=== PATIENT | male | born 1960 | race Caucasian/White ===

== ENCOUNTER 2019-06-13 17:38 | Inpatient (IN) ==
--- NOTE | 2019-06-13 19:56 | Emergency Department Note ---
Disposition Clinical Impression: Finger osteomyelitis, left Disposition: Admitted As Inpatient Condition: Good Time of Disposition: 20:55 General Adult HPI - General Chief complaint: ED Extremity Injury, Upper Stated complaint: Left pointer finger infection,needs iv antibotics Time Seen by Provider: 06/13/19 19:28 Source: patient Limitations: no limitations Nursing Notes Reviewed: Yes Vital Signs Reviewed: Yes - History of Present Illness HPI Narrative: 59-year-old male otherwise healthy right hand dominant presents to the emergency department with complaints of left finger pain. Approximately a month ago while sledgehammering a stonewall he scraped it against the metal piece. Since then has gradually gotten bigger in size and swollen. Approximately 2 weeks ago his family physician attempted to drain it as there was some drainage but to no avail. He denies any recent fevers nausea or vomiting. Unknown last tetanus. Presents today after being evaluated by his primary care provider in obtaining an x-ray with concern for septic arthritis. He presents here for further evaluation as they can I get him into orthopedic surgeon. He has some discomfort with bending his finger. Unfortunately today he also cut it on something. Pain Scale: 0 - Related Data Allergies Allergy/AdvReac Type Severity Reaction Status Date / Time No Known Allergies Allergy Verified 04/29/19 08:14 All systems ED: reviewed and negative except as stated. Review of Systems: As Per HPI Constitutional: Denies: fever, chills Cardiovascular: Denies: chest pain Respiratory: Denies: dyspnea Gastrointestinal: Denies: nausea, vomiting Musculoskeletal: Reports: as per HPI Integumentary: Reports: as per HPI Past Medical History - Past Medical History Attestation: Yes The following information was validated with the patient. Source: patient Medical history: Reports: non-contributory Surgical history: Reports: herniorrhaphy Psychiatric history: Reports: no psych history - Social History Smoking Status: Never smoker Smokeless Tobacco Status: Yes Alcohol use: Reports: rarely Drug use: Reports: none Physical Exam - General Limitations: no limitations General appearance: alert, in no apparent distress - Head Head exam: atraumatic, normocephalic, normal inspection - Eye Eye exam: Present: normal appearance, EOMI - ENT ENT exam: normal exam, normal oropharynx, mucous membranes moist - Neck Neck exam: Present: normal inspection, full ROM, trachea midline - Chest Chest inspection: Present: normal inspection, symmetric chest wall rise - Respiratory Respiratory exam: Present: normal lung sounds bilaterally. Absent: respiratory distress, wheezes - Cardiovascular Cardiovascular exam: Present: regular rate, normal rhythm, normal heart sounds - Expanded Cardiovascular Exam Peripheral pulses: 2+: radial (R), radial (L) - Expanded Upper Extremity Exam Shoulder exam: Present: normal inspection, full ROM Arm exam: Present: normal inspection, full ROM Elbow exam: Present: normal inspection, full ROM Forearm/Wrist exam: Present: normal inspection, full ROM Hand exam: Present: full ROM (Limited due to discomfort to the left index finger), swelling (Left index along PIP), abrasion (Dorsal side of his PIP). Absent: deformity Hand L/R back image: 1 - Swollen, no drainage, there is a superficial abrasion seen, and blanches but is not warm to the touch slightly erythematous. Neuromotor exam: Normal: wrist extension, thumb opposition, thumb IP flexion, thumb adduction, fingers 2-5 abduction Neurosensory exam: Normal: radial nerve, ulnar nerve, median nerve Vascular exam: Normal: capillary refill, radial pulse - Skin Skin exam: Present: warm, dry, intact, erythema. Absent: rash - Expanded Skin Exam Type of lesion: Absent: rash, abscess Distribution: LUE Description: Present: erythematous, swelling. Absent: confluent, fluctuant Course Course Narrative: On physical exam his left 2nd finger has swelling noted to the PIP joint. Finger is not held in any particular position he has good range of motion and slight discomfort with extension. There is no extension into the hand concerning for tenosynovitis. He has good capillary refill. Sensation is intact. Cardinal him movements intact. I reviewed his labs from earlier today. His WBC is 6. ESR 6. CRP less than 5. I reviewed his x-ray which showed concerns for septic arthropathy. These labs are from earlier today at 0 800. I discussed this with the on-call orthopedic surgeon Dr. Britton who agrees with the suspicion and will consult the patient on the floor for possible OR and incision and drainage tomorrow morning. NPO at midnight. Vancomycin and Zosyn will be ordered as well as blood cultures. Will get the patient's of medicine service. Impression is left finger osteomyelitis. XR/XR hand 3V LT IMPRESSION: Findings consistent with a septic arthropathy of the proximal interphalangeal joint of the 2nd digit. The findings were sent to the Radiology Results Communication [facility] at 9:10 am on 06/13/2019to be communicated to a licensed caregiver. D/ / 06/13/2019 09:16:56 Cory Delgado MD / Letty Millan Interpreting Provider: Cory Delgado MD - Consultations Consultation #1: Spoke with on-call hospitalist dwayne Bradshaw to admit for left finger osteomyelitis. No further orders at this time Time: 20:53 Vital Signs Temperature 98.7 F 06/13/19 18:13 Pulse Rate 78 06/13/19 18:13 Respiratory Rate 18 06/13/19 18:13 Blood Pressure 118/70 06/13/19 18:13 O2 Sat by Pulse Oximetry 96 06/13/19 18:13 Temperature 98.7 F 06/13/19 18:13 Pulse Rate 78 06/13/19 18:13 Respiratory Rate 18 06/13/19 18:13 Blood Pressure 118/70 06/13/19 18:13 O2 Sat by Pulse Oximetry 96 06/13/19 18:13 Oxygen Delivery Oxygen Delivery Room Air Medical Decision Making - MDM Narrative Medical decision making narrative: Patient was discussed with my attending physician who agrees with ED management and final disposition. They independently evaluated the patient. Please refer to their attestation to this encounter for additional information. This note was generated by [employer] voice recognition software and as a result grammatical or spelling errors may occur using this program. - Medical Records Medical records reviewed: Yes I reviewed the patient's medical records. - Lab Data Lab results reviewed: Yes I reviewed the patient's lab results. Lab results narrative: Laboratory Tests 06/13/19 06/13/19 06/13/19 08:36 08:36 08:36 WBC ESR 6 Creatinine 1.01 C-Reactive Protein < 5 Rheumatoid Factor 10 06/13/19 08:36 WBC 6.5 ESR Creatinine C-Reactive Protein Rheumatoid Factor
[2019-06-13] MEDS ORDERED: Piperacillin/Tazobactam 3.375 GM in D5% in Water (Mini-Bag+) 100 ML IVPB ONE (20:01)
--- NOTE | 2019-06-13 20:04 | Emergency Department Note ---
Disposition Clinical Impression: Finger osteomyelitis, left Disposition: Admitted As Inpatient Condition: Fair Referrals: Heri Hernandez DO [Primary Care Provider] - Time of Disposition: 20:55 General Adult HPI - General Chief complaint: ED Extremity Injury, Upper Stated complaint: Left pointer finger infection,needs iv antibotics Time Seen by Provider: 06/13/19 19:28 Source: patient Limitations: no limitations Nursing Notes Reviewed: Yes Vital Signs Reviewed: Yes - History of Present Illness Pain Scale: 0 - Related Data Home Medications Medication Instructions Recorded Confirmed Unable To Obtain [Unable to Obtain] 06/13/19 06/13/19 Allergies Allergy/AdvReac Type Severity Reaction Status Date / Time No Known Allergies Allergy Verified 04/29/19 08:14 Past Medical History - Past Medical History Medical history: Reports: non-contributory Surgical history: Reports: herniorrhaphy Psychiatric history: Reports: no psych history - Social History Smoking Status: Never smoker Smokeless Tobacco Status: Yes Alcohol use: Reports: rarely Drug use: Reports: none Physical Exam - General Limitations: no limitations General appearance: alert, in no apparent distress Course Vital Signs Temperature 98.7 F 06/13/19 18:13 Pulse Rate 78 06/13/19 18:13 Respiratory Rate 18 06/13/19 18:13 Blood Pressure 118/70 06/13/19 18:13 O2 Sat by Pulse Oximetry 96 06/13/19 18:13 Temperature 98.7 F 06/13/19 18:13 Pulse Rate 78 06/13/19 18:13 Respiratory Rate 18 06/13/19 18:13 Blood Pressure 118/70 06/13/19 18:13 O2 Sat by Pulse Oximetry 96 06/13/19 18:13 Oxygen Delivery Oxygen Delivery Room Air Attestation Statement - Attestation Attestation: I examined this patient and my medical decision-making was reviewed with the Resident Physician. I agree with the documented findings, disposition and treatment plan as described except to the extent set forth below. Patient presents to the ED with left index finger swelling. Patient had an injury about a month ago where he scratched his finger at work. It got infected. It continues to be swollen and painful at the PIP joint. He saw his family physician. That an outpatient x-ray that was concerning for septic arthropathy. On examination he is awake and pleasant sitting on the edge of the bed. He is not of swelling and erythema over the PIP joint of the left index finger. Decreased range of motion secondary to the pain. Plan. Labs and x-ray were reviewed. We did discuss the patient with orthopedics on-call. Patient is admitted to medicine with orthopedic consult.
[2019-06-13] MEDS ORDERED: Piperacillin/Tazobactam 3.375 GM in 0.9 % Sodium Chloride Mini Bag 100 ML IVPB ONE (20:15)
[2019-06-13] MEDS ORDERED: Tdap (Boostrix) Vaccine 0.5 ML SYRINGE IM ONE (20:57)
[2019-06-14] MEDS ORDERED: Naloxone 0.4 MG/ML INJ IVP PRN ×2 (05:01→19:31)
--- NOTE | 2019-06-14 05:05 | Internal Med History&Physical ---
Date of Encounter: 06/14/19 Time of Encounter: 04:20 Internal Medicine - H&P: HPI Chief complaint: Septic arthropathy Admitted From: Emergency Dept Plans for Post Hospital Care: Home History of present illness: Mr. Seaman is a 59 year old male Patient presented to the ER with swelling of his left second finger. Approximately 1.5 months ago the patient was using a sledge hammer when he scraped his finger on a metal wall. He initially had a wound, but did not seek medical attention at the time. Over the course of the last few weeks however he has seen multiple providers and has been placed on antibiotics for presumed infection. The joint has been opened up once, and joint aspiration has been attempted with no significant change. He had an x-ray performed by his PCP, the results of which indicated possible septic arthritis. He was advised to come to the ER for further evaluation. In the ER patient's initial vital signs: Within normal limits. CBC: Unremarkable BMP: Within normal limits Liver function tests: Slightly elevated bilirubin of 1.3, other cueva no abnormalities. Left hand x-ray: Findings consistent with a septic arthropathy of the proximal interphalangeal joint of the 2nd digit. Patient was started on vancomycin and zosyn in the ER, and Dr. Britton of orthopedic surgery was consulted and will see the patient in the morning. Upon my evaluation the patient is resting comfortably in the hospital bed in no acute distress. He denies chest pain, abdominal pain, nausea, vomiting, diarrhea, constipation and finger pain. He is able to move the finger with out difficulty. He denies significant family medical history. He states that he has a history of hyperlipidemia and has used a CPAP machine before in the past but not recently. He is a full code. Past Med Surg Social Fam HX - Past Medical History Medical history: non-contributory Additional medical history: sleep apnea Psychiatric history: no psych history - Past Surgical History Surgical History: herniorrhaphy - Social History Smoking Status: Never smoker Smokeless Tobacco Status: Yes Alcohol use: rarely Drug use: none Internal Medicine - H&P: Meds Meloxicam [Mobic] 15 mg PO DAILY 06/13/19 [History] Allergy/AdvReac Type Severity Reaction Status Date / Time No Known Allergies Allergy Verified 04/29/19 08:14 All Systems PM: A 10-system review of systems was performed and is negative for pertinent findings except as documented above in the HPI. - Constitutional Vitals: Temp Pulse Resp BP Pulse Ox 97.8 F 79 18 142/88 97 06/14/19 04:37 06/14/19 04:37 06/14/19 04:37 06/14/19 04:37 06/14/19 04:37 General appearance: Present: cooperative, A&O X 3, pleasant, no acute distress, answers questions appropriately Exam: - - Head Head exam: Present: normal inspection - Eye Eye exam: Present: EOMI, normal appearance - Respiratory Respiratory exam: Present: CTAB. Absent: rales, respiratory distress, rhonchi, wheezes - Cardiovascular Cardiovascular exam: Present: RRR. Absent: diastolic murmur, systolic murmur - GI/Abdominal GI/Abdominal exam: Present: normal bowel sounds, soft. Absent: tenderness - Extremities Exam Extremities exam: Present: warm, radial pulses palpable and symmetrical. Absent: calf tenderness, pedal edema, tenderness Additional comments: Left second digit proximal interphalangeal joint swelling. No tenderness with movement or palpation, not significant erythema - Neurological Exam Neurological exam: Present: no focal deficits, strengths equal and symetr throughout. Absent: motor sensory deficit, facial droop, speech deficit - Skin Skin exam: Present: dry, normal color, warm - Assessment and Plan (1) Septic arthritis Current Visit: Yes Status: Acute Assessment and plan: As seen on patient's hand x-ray. Dr. Britton of orthopedic surgery will consult on the patient in the morning. NPO Pain management as needed Follow up orthopedic surgery recommendations. Continue IV antibiotics. Follow up Blood cultures when available. Qualifiers: Septic arthritis location: hand Septic arthritis organism: due to unspecified organism Laterality: left Qualified Code(s): M00.9 - Pyogenic arthritis, unspecified (2) DVT prophylaxis Current Visit: Yes Status: Acute Assessment and plan: SCDs - Time Spent With Patient Total time spent is greater than 50% in coordination of care (as documented) at patient's floor/unit and/or counseling patient: Greater than 35 minutes
[2019-06-14] MEDS ORDERED: 0.9 % Sodium Chloride 1,000 ML IVC SCH ×2 (05:15→19:31)
[2019-06-14 06:04] LABS: Hematocrit 42.4 % (37.5-50.1); Mean Corpuscular HGB Conc 31.8 g/dL (31.6-35.5); Mean Corpuscular Hemoglobin 27.6 pg (28.0-33.3); Mean Corpuscular Volume 86.7 fL (83.0-100.0); Mean Platelet Volume 10.2 fL (9.4-12.4); Platelet Count 202 K/mcL (140-400); Red Blood Count 4.89 M/mcL (4.19-5.50); Red Cell Distribution Width 13.8 % (11.5-14.5)
[2019-06-14 06:06] LABS: Hemoglobin 13.5 g/dL (12.9-16.9)
[2019-06-14 06:13] LABS: INR 1.1; Prothrombin Time 12.6 Seconds (9.4-12.1)
[2019-06-14 06:19] LABS: BUN/Creatinine Ratio 17 (6-26); Blood Urea Nitrogen 18 mg/dL (8-23); Calcium 8.7 mg/dL (8.6-10.3); Carbon Dioxide 28 mEq/L (23-29); Chloride 107 mEq/L (98-107); Glucose 110 mg/dL (70-105); Osmolality,Calculated 299 (280-300); Potassium 3.9 mEq/L (3.5-5.1); Sodium 143 mEq/L (136-145); eGFR For African Americans > 60 (> 60); eGFR For Non-African Americans > 60 (> 60)
--- NOTE | 2019-06-14 07:42 | Orthopedic Consult Note ---
Date of Encounter: 06/14/19 Time of Encounter: 07:38 Assessment and Plan (1) Septic arthritis Current Visit: Yes Status: Acute I did have a long discussion with the patient regarding the diagnosis. He does have findings radiographically and a clinical history that supports septic arthropathy of the left index finger proximal interphalangeal joint as evidenced by erosive changes around the joint and obliteration of the joint space over the course of just a month and a half after scraping injury over the joint. Other items on the differential include inflammatory arthropathy such as gout. My recommendation is for incision, drainage, irrigation, debridement of the left index finger and at that time we will obtain cultures as well as a biopsy for definitive diagnosis. Should the joint be infected I anticipate 4-6 weeks of IV antibiotics. The risks discussed included but were not limited to stiffness, bleeding, infection, blood clots, damage to neurovascular structures, tendons, ligaments, and bone. Also discussed was the risk of continued symptoms and possible need for further procedures. I did discuss the anesthesia risks including stroke, heart attack, and . I did discuss the reasonable, foreseeable postoperative course with the patient. The patient did wish to proceed and consent was obtained. I have reviewed each of the pertinent components of this chart and any other pertinent medical component(s) including but not limited to pertinent application of the chief complaint, history of present illness, current medica tion, medical history, allergies, family history, medical history, surgical history, social history, review of systems, vital signs, and any other portion of the pertinent patient medical record directly or indirectly involved with this patient care that is pertinent based on my medical decision process. RAGHAVENDRA Santos Qualifiers: Septic arthritis location: hand Septic arthritis organism: due to unspecified organism Laterality: left Qualified Code(s): M00.9 - Pyogenic arthritis, unspecified History of Present Illness HPI: Mr. 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 He is admitted to the hospitalist yesterday after being sent to the ER by his primary care provider. About a month and a half ago he scraped the dorsal aspect of the index finger after using a sledgehammer. Since that time he is seen multiple providers and been placed on antibiotics due to a presumed joint infection. One attempt was made at aspirating the joint however no fluid was obtained. X-rays were concerning for septic arthropathy and he was admitted for further evaluation. On my evaluation he actually denies any significant pain localized to the left index finger. No new injuries or complaints since. No numbness, tingling, or any other associated signs or symptoms or modifying factors. Past Med Surg Social Fam HX - Past Medical History Medical history: non-contributory Additional medical history: sleep apnea Psychiatric history: no psych history - Past Surgical History Surgical History: herniorrhaphy - Social History Smoking Status: Never smoker Smokeless Tobacco Status: Yes Alcohol use: rarely Drug use: none Medications and Allergies Meloxicam [Mobic] 15 mg PO DAILY 06/13/19 [History] Allergy/AdvReac Type Severity Reaction Status Date / Time No Known Allergies Allergy Verified 04/29/19 08:14 All Systems Reviewed: Constitutional -The patient denies any fevers, chills, or feelings of illness Neurologic -The patient denies any numbness, tingling, or burning pains Physical Exam - Constitutional Vitals: Temp Pulse Resp BP Pulse Ox 97.9 F 77 18 121/80 99 06/14/19 06:52 06/14/19 06:52 06/14/19 06:52 06/14/19 06:52 06/14/19 06:52 CONSTITUTIONAL -Vitals reviewed -The patient is well developed, well nourished, well groomed PSYCHIATRIC -Fully alert and oriented -Pleasant mood LEFT UPPER EXTREMITY The skin and the soft tissue envelope are intact. Focal swelling of the index finger PIP joint with a subtle amount of redness. There is also a lesser amount of more generalized swelling of the index finger from edema. He is locally tender over the dorsal aspect of the index finger PIP joint with slight r adial/ulnar laxity but with firm endpoints. I do feel grinding of the joint with passive motion which is only from 10 degrees to 70 degrees. The patient can actively flex and extend all digits, extend the thumb, cross the index and long fingers, make an okay sign, and oppose the thumb. The fingertips are all grossly sensate and well-perfused, and the radial artery pulse is 2+. Diagnostic Imaging: I did personally review and interpret x-rays of the left hand shows destructive changes at the PIP joint with obliteration of the joint space for a some for septic arthropathy. This is new since x-rays were obtained at the beginning of March. Results - Labs Result Diagrams: 06/14/19 05:43 06/14/19 05:43 Labs: Abnormal lab results MCH 27.6 pg (28.0-33.3) L 06/14/19 05:43 PT 12.6 Seconds (9.4-12.1) H 06/14/19 05:43 Glucose 110 mg/dL (70-105) H 06/14/19 05:43 H & H 06/14/19 Range/Units 05:43 Hgb 13.5 D (12.9-16.9) g/dL Hct 42.4 (37.5-50.1) % All other labs normal. Consult Discharge Plan - Plan Referrals: Heri Hernandez DO [Primary Care Provider] -
[2019-06-14] MEDS: Piperacillin/Tazobactam 3.375 GM in 0.9 % Sodium Chloride Mini Bag 100 ML IVPB SCH ×4 (09:20→23:26)
--- NOTE | 2019-06-14 14:29 | Internal Med Progress Note ---
Hospitalist Progress Note - Encounter Date of Encounter: 06/14/19 Time of Encounter: 09:30 - Subjective Interval History: Hardeep Seaman is a 59 YOM without significant medical history who presented to ED with swelling in the left index finger for the past month. He had been on outpatient antibiotics without improvement. Patient was admitted due to outp atient X-ray showing possible septic arthritis. Ortho was consulted and plans for debridement today. No acute events overnight. Patient denies any pain or worsened swelling. Denies fever, chills, N/V/D, CP or SOB. - Exam Vitals: Temp Pulse Resp BP Pulse Ox 98.2 F 59 18 146/91 99 06/14/19 11:22 06/14/19 11:22 06/14/19 11:22 06/14/19 11:22 06/14/19 11:22 Exam: Gen: Vitals noted. No acute distress. Eyes: anicteric sclerae, moist conjunctivae HENT: Atraumatic, normocephalic; oral mucosa moist Cardiac: RRR, no murmur, normal S1/S2 Pulmonary: CTA bilaterally, no wheezes, rales or rhonchi, equal chest expansion Extremities: Left index finger with swelling of the proximal interphalangeal joint with mild restriction in finger flexion. No pain to palpation. No erythema, warmth, or drainage noted. No BLE edema, nontender calf, no cyanosis or clubbing Skin: Warm, dry, intact; no rashes or ulcers Neuro: no focal deficits Psych: Appropriate mood and behavior. A&Ox3 - Assessment and Plan (1) Septic arthritis Current Visit: Yes Status: Suspected Assessment and Plan: Suspected secondary to scrape injury >1 month ago However patient is able to move joint without pain Joint swelling noted, but without erythema, warmth or drainage Afebrile CBC and BMP unremarkable Ortho consulted and planning for debridement today Continue vanc/zosyn pending intraoperative wound cultures - Time Spent with Patient Total time spent is greater than 50% in coordination of care (as documented) at patient's floor/unit and/or counseling patient: Internal Medicine: Result - Labs CBC & Chem 7: 06/14/19 05:43 06/14/19 05:43 Labs: Short CBC 06/14/19 Range/Units 05:43 WBC 6.0 (4.3-11.1) K/mcL Hgb 13.5 D (12.9-16.9) g/dL Hct 42.4 (37.5-50.1) % Plt Count 202 (140-400) K/mcL [facility] [place]/14[place]19 05:43 Sodium 143 Potassium 3.9 Chloride 107 Carbon Dioxide 28 BUN 18 Creatinine 1.08 Glucose 110 H Calcium 8.7 - ABG Interpretation ABG results: PT/INR, D-dimer PT 12.6 Seconds (9.4-12.1) H 06/14/19 05:43 Consult Discharge Plan - Plan Referrals: Heri Hernandez, [Primary Care Provider] - (1) Septic arthritis Qualifiers: Septic arthritis location: hand Septic arthritis organism: due to unspecified organism Laterality: left Qualified Code(s): M00.9 - Pyogenic arthritis, unspecified
[2019-06-14] MEDS ORDERED: *HR* FentaNYL (PF) 100 MCG/2 ML VIAL ONE ×2 (14:55→16:08)
[2019-06-14] MEDS ORDERED: *HR* Midazolam HCl 2 MG/2 ML VIAL ONE ×2 (14:56→16:09)
[2019-06-14] MEDS ORDERED: Lidocaine -MPF 2% 2 ML VIAL ONE ×2 (14:57→16:08)
[2019-06-14] MEDS ORDERED: *HR* Propofol 200 MG/20 ML VIAL IVP ONE ×2 (14:57→16:09)
[2019-06-14] MEDS ORDERED: *HR* Succinylcholine 200 MG/10 ML VIAL IVP ONE (14:58)
[2019-06-14] MEDS ORDERED: *HR* Rocuronium Bromide 50 MG/5 ML VIAL ONE (14:59)
[2019-06-14] MEDS ORDERED: Ondansetron 4 MG/2 ML VIAL ONE ×2 (15:00→16:15)
--- NOTE | 2019-06-14 15:50 | Anesthesia Evaluation PreOp ---
Date of Encounter: 06/14/19 Time of Encounter: 15:48 - Past History Planned Operation: LEFT INDEX FINGER I&D Cardiac History: Denies any Significant Hx Pulmonary History: Denies Any Significant HX STRETCHER AND DRIER History: Denies Any Significant HX Other Medical History: Denies Any Significant HX Alcohol Use: rarely Drug use: none Medications and Allergies Meloxicam [Mobic] 15 mg PO DAILY 06/13/19 [History] Allergy/AdvReac Type Severity Reaction Status Date / Time No Known Allergies Allergy Verified 04/29/19 08:14 - Meds/Allergy Pre-op Review Medications Reviewed: Yes Allergies Reviewed: Yes Anesthesia Results - Labs 06/14/19 05:43 06/14/19 05:43 Anesthesia Exam Vital Signs/O2 Sat, Most Current Temp Pulse Resp BP Pulse Ox 98.2 F 59 18 146/91 99 06/14/19 11:22 06/14/19 11:22 06/14/19 11:22 06/14/19 11:22 06/14/19 11:22 Weight: 77 KG - BMI 26 NPO (# of Hours): 8 - HEENT Mallampati: I Teeth: Normal - Cardiac Rhythm: Regular - Pulmonary Breath Sounds: bilateral Clear Anesthesia Assess/Plan ASA Score: 1 Anesthetic Plan: General Monitoring Plan: Standard Monitors Recovery Plan: PACU
[2019-06-14] MEDS ORDERED: *HR* HYDROmorphone (PF) 1 MG/ML SYRINGE IVP PRN ×2 (15:55→19:31)
[2019-06-14] MEDS ORDERED: Ondansetron 4 MG/2 ML VIAL IVP ONE ×2 (15:55→19:31)
[2019-06-14] MEDS ORDERED: *HR* OxyCODONE Immed Rel 5 MG TABLET PO PRN ×2 (15:55→19:31)
[2019-06-14] MEDS ORDERED: Ketorolac 30 MG/ML VIAL IVP ONE ×2 (15:55→19:31)
[2019-06-14] MEDS ORDERED: *HR* Promethazine 25 MG/ML VIAL IVP PRN ×2 (15:55→19:31)
[2019-06-14] MEDS ORDERED: Bupivacaine/EPI 1:200k 0.5%PF 10 ML VIAL ONE (15:59)
--- NOTE | 2019-06-14 16:13 | Electrocardiograph Report ---
[address] [address] Test Date: 2019-06-14 Pat Name: Hardeep Seaman Department: 114 Room: [facility] Gender: M [employer] Director: [id number] : 1960 Requested By: Luis Peres Order Number: [id number] Reading MD: Carmen Shepard Measurements Intervals [place] Rate: 52 P: 61 NH: 147 QRS: 3 QRSD: 91 T: -7 QT: 422 QTc: 401 Interpretive Statements SINUS BRADYCARDIA WITH SINUS ARRHYTHMIA Electronically Signed On 06-14-2019 16:12:25 EDT by Carmen Shepard
[2019-06-14] MEDS ORDERED: Dexamethasone 4 MG/ML VIAL ONE (16:15)
--- NOTE | 2019-06-14 16:55 | Orthopedic Operative Note ---
Date of procedure: 06/14/19 Procedure: OPERATIVE REPORT SURGEON: Timothy Britton MD PREOPERATIVE DIAGNOSIS: Left index finger PIP joint inflammatory arthritis, possible septic arthritis POSTOPERATIVE DIAGNOSIS: Same PROCEDURE: Incision, drainage, irrigation, debridement of the left index finger proximal interphalangeal joint biopsy of synovium and periarticular bone ANESTHESIA: Gen. anesthesia SPECIMENS: Swabs of joint fluid from the left index finger PIP joint, and synovium and periarticular bone both sent for biopsy and culture PREOPERATIVE NOTE The surgical plan was reviewed with the patient. The risks, benefits, alternatives, and potential complications of this procedure were discussed with the patient including injury to veins, arteries, nerves, tendons, ligaments, and bone. Also discussed were the risks of infection, bleeding, pain, blood clots, the possible need for a blood transfusion, the possible need for further procedures, heart attack, stroke, and . Additional risks include persistent symptoms despite surgery. All of this was explained in simple terms, and the patient verbalized understanding and wished to proceed. Consent was given to proceed with surgery. PROCEDURE: The patient was seen in the preoperative holding area where the identify and the consent were confirmed. The left index finger was marked. Final questions were answered. The patient was brought back to the operating room and placed supine on the operating room table. A huddle was performed with the patient and all vital surgical team members confirming patient identity, the correct procedure, and the correct operative site. Gen. anesthesia was administered. The operative extremity was prepped and draped in the usual sterile fashion. A surgical time out was performed immediately preceding the incision with all personnel in the operating room to confirm patient identity, the correct operative site and extremity, correct radiographic studies, availability of appropriate surgical equipment, and agreement on the planned procedure. The limb was exsanguinated and the tourniquet was inflated. A curvilinear dorsal incision was made centered over the proximal interphalangeal joint. Dissection proceeded carefully to the subcutaneous tissue and full-thickness flaps were elevated. There was swelling of the proximal interphalangeal joint with a mild palpable effusion. An arthrotomy was made between the central extensor and the radial lateral band. There is a small amount of straw-colored joint fluid which was swabbed for culture. There is hypertrophic synovium which was sharply debrided and sent for biopsy and culture. The periarticular bone was quite soft and debrided with a rongeur. This was also sent for biopsy and culture. There was no purulence. The articular cartilage had been worn down completely to bone. The wound was copiously irrigated with 3 L of saline. The deep layer was closed with interrupted 3-0 PDS stitches. The instrument, sponge, and needle counts were correct after wound closure. POST OPERATIVE PLAN: Follow-up biopsy and culture results. If confirmed to be septic arthropathy and recommend 4-6 weeks of IV antibiotics under the control of the infectious disease specialist. If inflammatory arthropathy than recommend supportive treatment including anti-inflammatories as needed. Was there an family medicine physician assistant present: No Estimated blood loss (cc): 1
--- NOTE | 2019-06-14 19:14 | Anesthesia Evaluation Post Op ---
Date of Encounter: 06/14/19 Time of Encounter: 19:10 - Vital Signs Vital Signs: Vital Signs/O2 Sat, Most Current Temp Pulse Resp BP Pulse Ox 98.0 F 70 14 123/92 97 06/14/19 18:53 06/14/19 18:53 06/14/19 18:53 06/14/19 18:53 06/14/19 18:53 - Lungs Lungs: Clear Ascult./Percussion - Airway Airway: Non-obstructed - Cardiovascular Irregular Rate (on arrival to PACU noted to have sinus arrhythmia, EKG obtained, Pt with no C/O or hx of cardiac issues. currently primarily regular sinus with occasional bradycardia in 40's) - Mental Status Mental Status: Alert & Oriented, Answers Appropriately - Pain Pain Scale: 0 Pain Scale used: Numeric (1 - 10) - Nausea Vomiting Nausea Vomiting: Not Present - Hydration Hydration: Tolerates oral liquids, Has not voided - Discharge PostOp Status: Transfer Patient to floor
[2019-06-14] MEDS ORDERED: Piperacillin/Tazobactam 3.375 GM in 0.9 % Sodium Chloride Mini Bag 100 ML IVPB ONE (19:31)
--- NOTE | 2019-06-15 06:25 | Orthopedics Progress Note ---
Date of Encounter: 06/15/19 Time of Encounter: 06:25 Subjective Interval history: Patient was seen this morning doing well without complaints. Afebrile vital signs stable. Operative extremity: Neurovascularly intact Dressing clean dry and intact Calves nontender Assessment and plan: Continue with postoperative care will contact Dr. Britton for wound care management Objective Vital signs: Vital Signs Temp Pulse Resp BP Pulse Ox 06/15/19 03:21 98.4 F 60 14 107/63 100 06/14/19 23:16 97.7 F 85 14 123/73 95 06/14/19 22:21 98 F 80 16 122/75 06/14/19 21:20 98.1 F 85 14 138/81 98 06/14/19 20:20 98.1 F 72 12 121/77 96 06/14/19 19:51 99 06/14/19 19:50 98.0 F 80 14 134/80 99 06/14/19 19:23 97.7 F 80 14 143/92 99 06/14/19 19:20 97.7 F 80 14 143/92 99 06/14/19 19:08 97.8 F 82 12 120/87 99 06/14/19 18:53 98.0 F 70 14 123/92 97 06/14/19 18:38 78 12 96/75 100 06/14/19 18:23 97.8 F 65 14 111/87 99 06/14/19 18:13 50 14 124/82 98 06/14/19 17:55 97.8 F 52 12 118/65 100 06/14/19 17:40 66 12 122/85 99 06/14/19 17:30 97.8 F 57 12 114/86 98 06/14/19 17:20 66 9 124/96 96 06/14/19 17:10 75 8 108/69 94 06/14/19 17:00 98.1 F 75 14 129/85 97 06/14/19 11:22 98.2 F 59 18 146/91 99 06/14/19 06:52 97.9 F 77 18 121/80 99 Intake and Output 06/14/19 06/14/19 06/15/19 15:59 23:59 07:59 Intake Total 350 / 1100 750 / 1100 500 / 500 Output Total Balance 350 / 1099 749 / 1099 500 / 500 Intake: IV Fluids 350 / 350 350 / 350 Zosyn 3.375 GM In 0.9 % Sodium 100 / 100 100 / 100 Chloride (Mini-Bag +) 100 ML @ 25 mls/hr IVPB Q8HR [facility] Rx#: [id number] Vancocin 1,250 MG In 0.9 % 250 / 250 250 / 250 Sodium Chloride 250 ML @ 167 mls/hr IVPB Q12H [facility] Rx#: [id number] Oral 750 / 750 150 / 150 Output: Urine 0 / 0 Estimated Blood Loss Other: Stool Size Small Stool Consistency soft Stool Characteristics Normal for Patient Stool Color Brown # Voids 1 1 1 Weight 77.3 kg Patient Weight 06/15/19 23:59 Weight 77.3 kg - Labs CBC & BMP: 06/14/19 05:43 06/14/19 05:43 Labs: Abnormal lab results MCH 27.6 pg (28.0-33.3) L 06/14/19 05:43 PT 12.6 Seconds (9.4-12.1) H 06/14/19 05:43 Glucose 110 mg/dL (70-105) H 06/14/19 05:43 Consult Discharge Plan - Plan Referrals: Heri Hernandez DO [Primary Care Provider] -
[2019-06-15] MEDS: Piperacillin/Tazobactam 3.375 GM in 0.9 % Sodium Chloride Mini Bag 100 ML IVPB SCH ×3 (07:55→23:36)
--- NOTE | 2019-06-15 14:31 | Internal Med Progress Note ---
Hospitalist Progress Note - Encounter Date of Encounter: 06/15/19 Time of Encounter: 10:00 - Subjective Interval History: Mr. Small was seen at bedside this morning. He was resting comfortably. Remained afebrile and normotensive overnight. No complaints concerning surgical intervention of his hand yesterday. Denies any pain with finger or hand mo vement. Additionally denying fever, chills, shortness of breath or chest pain. - Exam Vitals: Temp Pulse Resp BP Pulse Ox 98.6 F 62 16 120/60 97 06/15/19 11:11 06/15/19 11:11 06/15/19 11:11 06/15/19 11:11 06/15/19 11:11 Exam: Gen: Vitals noted. No acute distress. Appears comfortable. Eyes: anicteric sclerae, moist conjunctivae; no lid-lag HENT: Atraumatic; oropharynx clear with moist mucous membranes Cardiac: RRR, no murmur, +S1/S2. No JVD noted. Pulmonary: CTA bilaterally, no wheezes, rales or rhonchi, equal chest expansion Extremities: Left index finger decrease in sensation, hand and fingers wrapped in Federico wrap. No pain with finger or hand movement Skin: Normal temperature, turgor; no rash, ulcers or subcutaneous nodules Neuro: moves all extremities, no focal deficits. Psych: Appropriate mood and behavior. A&Ox3 - Assessment and Plan (1) Joint effusion Current Visit: Yes Status: Acute Assessment and Plan: Presented with left hand second PIP joint effusion after injury ongoing for about one month despite outpatient antibiotic management Outpatient x-ray was concerning for septic arthritis Underwent orthopedic debridement on 06/14/19, no purulence noted No pain with hand or finger movement Afebrile and normotensive -Awaiting pathology for surgical biopsies -Continue vancomycin and Zosyn until pathology report returns -CBC and BMP in the morning (2) Hyperlipidemia Current Visit: Yes Status: Acute Assessment and Plan: History of hyperlipidemia we will continue home Zocor DVT Prophylaxis: SCD - Time Spent with Patient Total time spent is greater than 50% in coordination of care (as documented) at patient's floor/unit and/or counseling patient: Internal Medicine: Result - Labs CBC & Chem 7: 06/14/19 05:43 06/14/19 05:43 - ABG Interpretation ABG results: PT/INR, D-dimer PT 12.6 Seconds (9.4-12.1) H 06/14/19 05:43 - Impressions Impressions Finger X-Ray 06/14/19 00:00 IMPRESSION: Intraoperative fluoroscopy provided for the clinical service. Please refer to operative report for more details. D/ / Luis Monte MD / Luis Monte MD Interpreting Provider: Luis Monte MD Fluoroscopy 06/14/19 00:00 IMPRESSION: Intraoperative fluoroscopy provided for the clinical service. Please refer to operative report for more details. D/ / Luis Monte MD / Luis Monte MD Interpreting Provider: Luis Monte MD Consult Discharge Plan - Plan Referrals: Heri Hernandez, [Primary Care Provider] - (1) Joint effusion Qualifiers: Effusion of joint location: hand Laterality: left Qualified Code(s): M25.442 - Effusion, left hand (2) Hyperlipidemia Qualifiers: Hyperlipidemia type: unspecified Qualified Code(s): E78.5 - Hyperlipidemia, unspecified
[2019-06-16 07:57] LABS: Hemoglobin 12.5 g/dL (12.9-16.9); Mean Corpuscular HGB Conc 32.1 g/dL (31.6-35.5); Mean Corpuscular Hemoglobin 27.8 pg (28.0-33.3); Mean Corpuscular Volume 86.9 fL (83.0-100.0); Mean Platelet Volume 10.1 fL (9.4-12.4); Platelet Count 178 K/mcL (140-400); Red Blood Count 4.49 M/mcL (4.19-5.50); Red Cell Distribution Width 13.6 % (11.5-14.5); White Blood Count 6.8 K/mcL (4.3-11.1)
[2019-06-16 08:17] LABS: BUN/Creatinine Ratio 16 (6-26); Blood Urea Nitrogen 19 mg/dL (8-23); Calcium 8.7 mg/dL (8.6-10.3); Carbon Dioxide 27 mEq/L (23-29); Chloride 109 mEq/L (98-107); Glucose 123 mg/dL (70-105); Osmolality,Calculated 298 (280-300); Potassium 3.8 mEq/L (3.5-5.1); Sodium 142 mEq/L (136-145); eGFR For African Americans > 60 (> 60); eGFR For Non-African Americans > 60 (> 60)
[2019-06-16] MEDS: Piperacillin/Tazobactam 3.375 GM in 0.9 % Sodium Chloride Mini Bag 100 ML IVPB SCH ×2 (08:40→17:26)
--- NOTE | 2019-06-16 12:01 | Electrocardiograph Report ---
[place] [id number] Test Date: 2019-06-14 Pat Name: Hardeep Seaman Department: 106 Room: [facility] Gender: M Filler Feeder: : [id number] Requested By: Louise Richey Order Number: [id number] Reading MD: Carmen Shepard Measurements Intervals [place] Rate: 53 P: 53 [place]: 122 QRS: -6 QRSD: 89 T: 29 QT: 435 QTc: 419 Interpretive Statements SINUS BRADYCARDIA WITH SINUS ARRHYTHMIA Electronically Signed On 06-16-2019 11:59:52 EDT by Carmen Shepard
--- NOTE | 2019-06-16 13:34 | Internal Med Progress Note ---
Hospitalist Progress Note - Encounter Date of Encounter: 06/16/19 Time of Encounter: 13:32 - Subjective Interval History: Mr. Seaman was seen at bedside this morning. Overnight he remained afebrile and normotensive. He was resting comfortably. Denies any pain in his fingers or hand. Denied fever, chills, nausea, emesis or shortness of breath. - Exam Vitals: Temp Pulse Resp BP Pulse Ox 97.7 F 58 15 141/76 95 06/16/19 12:09 06/16/19 12:06/16/19 12:06/16/19 12:06/16/19 12:09 Exam: Gen: Vitals noted. No acute distress. Appears comfortable. Eyes: anicteric sclerae, moist conjunctivae; no lid-lag HENT: Atraumatic; oropharynx clear with moist mucous membranes Cardiac: RRR, no murmur, +S1/S2. No JVD noted. Pulmonary: CTA bilaterally, no wheezes, rales or rhonchi, equal chest expansion Extremities: Left index finger decrease in sensation, hand and fingers wrapped in Federico wrap. No pain with finger or hand movement Skin: Normal temperature, turgor; no rash, ulcers or subcutaneous nodules Neuro: moves all extremities, no focal deficits. Psych: Appropriate mood and behavior. A&Ox3 - Assessment and Plan (1) Joint effusion Current Visit: Yes Status: Acute Assessment and Plan: Presented with left hand second PIP joint effusion after injury ongoing for about one month despite outpatient antibiotic management Outpatient x-ray was concerning for septic arthritis Underwent orthopedic debridement on 06/14/19, no purulence noted; periarticular bone was noted to be soft in op. note No pain with hand or finger movement Afebrile and normotensive -Awaiting pathology for surgical biopsies; acid fast and gram stain negative -Continue vancomycin and Zosyn until pathology report returns -BMP in the morning (2) Hyperlipidemia Current Visit: Yes Status: Acute Assessment and Plan: History of hyperlipidemia we will continue home Zocor DVT Prophylaxis: SCD - Time Spent with Patient Total time spent is greater than 50% in coordination of care (as documented) at patient's floor/unit and/or counseling patient: Internal Medicine: Result - Labs CBC & Chem 7: 06/16/19 07:31 06/16/19 07:31 Labs: Short CBC 06/16/19 Range/Units 07:31 WBC 6.8 (4.3-11.1) K/mcL Hgb 12.5 L (12.9-16.9) g/dL Hct 39.0 (37.5-50.1) % Plt Count 178 (140-400) K/mcL BMP 06/16/19 07:31 Sodium 142 Potassium 3.8 Chloride 109 H Carbon Dioxide 27 BUN 19 Creatinine 1.17 Glucose 123 H Calcium 8.7 - ABG Interpretation ABG results: PT/INR, D-dimer PT 12.6 Seconds (9.4-12.1) H 06/14/19 05:43 Consult Discharge Plan - Plan Referrals: Heri Hernandez, [Primary Care Provider] - (1) Joint effusion Qualifiers: Effusion of joint location: hand Laterality: left Qualified Code(s): M25.442 - Effusion, left hand (2) Hyperlipidemia Qualifiers: Hyperlipidemia type: unspecified Qualified Code(s): E78.5 - Hyperlipidemia, unspecified
[2019-06-17] MEDS: Piperacillin/Tazobactam 3.375 GM in 0.9 % Sodium Chloride Mini Bag 100 ML IVPB SCH ×2 (00:27→07:59)
--- NOTE | 2019-06-17 07:19 | Orthopedics Progress Note ---
Date of Encounter: 06/17/19 Time of Encounter: 07:16 - Assessment and Plan (1) Septic arthritis Current Visit: Yes Status: Suspected Qualifiers: Septic arthritis location: hand Septic arthritis organism: due to unspecified organism Laterality: left Qualified Code(s): M00.9 - Pyogenic arthritis, unspecified Subjective Interval history: S: The patient is resting comfortably in bed He denies any pain to the left index finger O: Afebrile on the vital signs are stable Incision is clean, dry, and intact and the stitches are intact. Mild swelling of the index finger centered over the proximal interphalangeal joint. He is able to grossly flex and extend the digit with stiffness as expected The fingertips are all grossly sensate and well-perfused, and the radial artery pulse is 2+. All cultures come back as negative at this point A: Inflammatory arthropathy of the left index finger PIP joint P: At this point given the findings at the time of surgery as well as the operative cultures coming back as negative as well as his absence of pain, my suspicion is low for septic arthropathy. I did discuss possible long-term IV antibiotics despite negative cultures, however given the overall clinical scenario I feel the risks outweigh the benefits. The patient agrees and wishes to observe for n ow. I feel that he can be discharged at this point with close follow-up and observation. Follow-up in the office in 1 week for wound evaluation and stitch removal. I did instruct him to keep the wound clean, dry, and covered and to also work on motion exercises to reduce the risk of stiffness. He will call the office sooner for any new or worsening concerns before then. Objective Vital signs: Vital Signs Temp Pulse Resp BP Pulse Ox 06/17/19 06:36 97.6 F 56 18 153/96 96 06/17/19 03:27 98.3 F 78 16 133/80 94 06/16/19 23:12 98.3 F 63 15 118/66 97 06/16/19 20:39 98.3 F 57 16 133/74 97 06/16/19 16:30 97.6 F 54 15 136/86 98 06/16/19 12:09 97.7 F 58 15 141/76 95 06/16/19 07:50 97.4 F L 59 18 130/83 94 Intake and Output 06/16/19 06/16/1919 15:59 23:59 07:59 Intake Total 840 / 3080 1890 / 3080 50 / 50 Output Total 0 / 0 0 / 0 Balance 840 / 3080 1890 / 3080 50 / 50 Intake: IV Fluids 350 / 800 100 / 800 Zosyn 3.375 GM In 0.9 % Sodium 100 / 300 100 / 300 Chloride (Mini-Bag +) 100 ML @ 25 mls/hr IVPB Q8HR [facility] Rx#: [id number] Vancocin 1,250 MG In 0.9 % 250 / 500 Sodium Chloride 250 ML @ 167 mls/hr IVPB Q12H [facility] Rx#: [id number] Oral 490 / 2280 1790 / 2280 50 / 50 Output: Urine 0 / 0 0 / 0 Other: Meal Lunch Dinner Percent of Meal Consumed 100% 100% Stool Size Small Stool Consistency soft Stool Color Brown # Voids 2 1 # Bowel Movements 1 Weight 77.86 kg Patient Weight 06/17/19 23:59 Weight 77.86 kg - Labs CBC & BMP: 06/16/19 07:31 06/16/19 07:31 Labs: Abnormal lab results Hgb 12.5 g/dL (12.9-16.9) L 06/16/19 07:31 MCH 27.8 pg (28.0-33.3) L 06/16/19 07:31 PT 12.6 Seconds (9.4-12.1) H 06/14/19 05:43 Chloride 109 mEq/L (98-107) H 06/16/19 07:31 Glucose 123 mg/dL (70-105) H 06/16/19 07:31 Vancomycin Trough 12 mcg/mL (5-10) H 06/16/19 22:34 Consult Discharge Plan - Plan Referrals: Heri Hernandez, [Primary Care Provider] -
[2019-06-17 08:51] LABS: BUN/Creatinine Ratio 16 (6-26); Blood Urea Nitrogen 18 mg/dL (8-23); Calcium 9.2 mg/dL (8.6-10.3); Carbon Dioxide 31 mEq/L (23-29); Chloride 108 mEq/L (98-107); Glucose 107 mg/dL (70-105); Osmolality,Calculated 284 (280-300); Potassium 4.1 mEq/L (3.5-5.1); Sodium 136 mEq/L (136-145); eGFR For African Americans > 60 (> 60); eGFR For Non-African Americans > 60 (> 60)
--- NOTE | 2019-06-17 10:19 | Discharge Summary ---
- NOTES TO OUTPATIENT PROVIDER Notes to Outpatient Provider: Close Ortho follow up to ensure no return of L index finger PIP joint swelling Orders not resulted at time of discharge: Pending orders 06/14/19 16:41 Surgical Pathology [PTH] Routine Culture,Anaerobic [RM] Routine Culture,Tissue (Biopsy) [RM] Routine Date of Encounter: 06/17/19 Time of Encounter: 10:17 Hospital course: Dear Doctors, I recently had the opportunity to care for this patient during their recent hospital stay at [facility]. Patient presented to the ER with swelling of his left second finger. Approximately 1 month ago he scraped his finger on a metal wall. Over the next few weeks he saw multiple providers and was treated with antibiotics for presumed infection. PCP ordered XR which indicated possible osteomyelitis, and given his joint swelling, he was advised to come to the ER for further evaluation. While here, Ortho saw patient and took him to OR for LUE 2nd PIP I&D/debridement with joint biopsy of synovium and periarticular bone which patient tolerated well. Pt maintained on broad spectrum IV abx while awaiting cultures, but ultimately they were negative. No purulence discovered intraoperatively. Per Ortho, other than initial XR, symptoms and signs do not point to infection at this time. Pt will discharge to complete 1 week PO bactrim and follow closely in outpatient Ortho clinic. Dx: Inflammatory arthritis requiring rule out septic arthritis Pertinent tests/consults: Ortho consult, took pt on 06/14 for LUE 2nd PIP I&D/debridement with joint biopsy of synovium and periarticular bone Follow up: Ortho 1 week Tests pending: Intraop biopsy gram stains negative and cultures no growth at almost 72h Med changes: new Bactrim DS 1 tab bid x7d, last dose 06/24 Mental status: awake, fully oriented Code status: Chip Tuner spent on discharge: 35 minutes It has been my pleasure participating in this patient's care. Please contact me with any questions or concerns regarding their hospital stay. Sincerely, Reese Espinoza MD - Discharge Medications Prescriptions: New Sulfamethoxazole/Trimeth DS [Bactrim DS] 1 each PO BID #14 tablet Continued Simvastatin [Zocor] 40 mg PO HS Changed Meloxicam [Mobic] 15 mg PO QAM PRN #0 PRN Reason: Moderate Pain Home Medications: Simvastatin [Zocor] 40 mg PO HS 06/14/19 [History] Meloxicam [Mobic] 15 mg PO QAM PRN #0 06/17/19 [Rx] Sulfamethoxazole/Trimeth DS [Bactrim DS] 1 each PO BID #14 tablet 06/17/19 [Rx] Allergies/Adverse Reactions: Allergy/AdvReac Type Severity Reaction Status Date / Time No Known Allergies Allergy Verified 06/14/19 20:26 Date of admission: 06/15/19 19:34 Primary care physician: Heri Hernandez DO Consults: 06/13/19 20:02 Consult to Orthopedic Surgery [CONS] Stat Consulting Provider: Timothy Britton Reason for Consult: left 2nd finger septic joint Time Notified: 20:03 Call Completed: Yes - Constitutional Vitals: Temp Pulse Resp BP Pulse Ox 97.6 F 56 18 153/96 96 06/17/19 06:36 06/17/19 06:36 06/17/19 06:36 06/17/19 06:36 06/17/19 06:36 Exam: General: NAD, good eye contact, well appearing Thoracic: Normal breath sounds b/l, no wheezing or crackles Cardio: Normal S1 and S2, regular rate and rhythm Extremities: Warm, well perfused. DP pulses 2+ b/l. No edema. LUE 2nd PIP mild swelling, good ROM, skin with vertical incision w stitches well approximated without erythema or discharge Neuro: Awake, fully oriented. Speech fluent - Patient Status Disposition: Home, Self-Care Condition: Good Functional capacity at discharge: independent ambulation Overall status at discharge: patient is progressing back to baseline - Discharge Instructions Follow Up With: Heri Hernandez DO [Primary Care Provider] - Timothy Britton MD [Partnered Physician] - (1 week) - Diet and Activity Activity: resume usual activities as tolerated Diet: advance to your usual diet
[2019-06-17 11:13] VITALS: BP 159/81
[2019-06-17] MEDS ORDERED: Aminoglycoside Consult 1 EACH MC ONE (12:32)
== END 2019-06-17 12:33 | disposition home or self-care (01) | DRG 479 ==
LOC: 3NENU 17:38 → EMEROOARM 17:38 → SUATTDRO 20:56 → 3NENU 21:37
PROVIDERS: ADMIT Family Medicine; ATTEND Internal Medicine